=== PATIENT | male | born 1970 | race Asian ===

== ENCOUNTER → 2017-05-31 | Outpatient (CLI) | payer BC | END | disposition home or self-care (01) | LOC: KCIC US 10:46 | DX: R94.4 Abnormal results of kidney function studies (principal) | CPT/HCPCS: 76770 ==

== ENCOUNTER → 2019-04-01 | Outpatient (CLI) | payer BC ==
--- NOTE | 2019-04-01 16:11 | KCIC ---
EXAM: Renal sonogram. HISTORY: Renal insufficiency. TECHNIQUE: Sonographic imaging of the kidneys and bladder was performed. COMPARISON: 05/31/2017. FINDINGS: The right kidney measures 10.0 cm [id number]. The left kidney measures 10.3 cm [id number]. The renal parenchyma is slightly echogenic. There is a 1.5 cm cyst within the upper pole the left kidney. There is no hydronephrosis. The aorta is normal in caliber. The inferior vena cava is patent. The ureteral jets are both seen. There is a post void bladder which is nearly empty. There are normal renal resistive indices. IMPRESSION: 1. 1.5 cm left renal cyst. 2. Echogenic renal parenchyma. This may be due to imaging technique or medical renal disease. Electronically signed by: Mary Baca MD (04/01/2019 4:09 PM) [facility] [place] [id number]
== END | disposition home or self-care (01) ==
LOC: KCIC US 14:43
PROVIDERS: ATTEND Nurse Practitioner Family
DX: N28.1 Cyst of kidney, acquired (principal)
CPT/HCPCS: 76770